=== PATIENT | female | born 1995 | race Caucasian/White ===

== ENCOUNTER → 2017-07-23 | Outpatient (CLI) | payer BC ==
[~2017-07-23] MED LIST: CEPH500T PO
--- NOTE | 2017-07-23 18:04 | Diagnostic Imaging Report ---
INDICATION: Size and dates. Anatomy. TECHNIQUE: Multiple real-time grayscale images were obtained over the gravid uterus. COMPARISON: None. FINDINGS: There is a single live intrauterine of 20 weeks 3 days +/- 2 weeks. Cardiac activity and motion are seen at real-time. No abnormality is seen. The placenta is posterior with no previa. There is a normal amount of amniotic fluid. Cervical length is 5.5 cm. No abnormality of the maternal ovaries is demonstrated. Biometrical measurements are as follows: Biparietal 4.8 cm, age 20 weeks 4 days. Head circumference 17.86 cm, age 20 weeks 3 days. Abdominal circumference 15.16 cm, age 20 weeks 3 days. Femur length 3.23 cm, age 20 weeks 1 days. Sonographic estimate age: 20 weeks 3 days. Sonographic estimated date of delivery: 12/07/2017. Estimated Weight: 342 gm (+/- 50 gm). LMP percentile: 60%. heart rate: 133 beats per minute. number: 1 of 1. IMPRESSION: There is a single live intrauterine of 20 weeks 3 days +/- 2 weeks. No abnormality is seen. Dictated by: Dictated on workstation # [id number]
== END ==
LOC: RAD 09:55
PROVIDERS: ATTEND Obstetrics & Gynecology
DX: Z34.92 Encounter for supervision of normal pregnancy, unspecified, second trimester (principal); Z3A.20 20 weeks gestation of pregnancy
CPT/HCPCS: 76805

== ENCOUNTER 2017-12-08 18:50 | Inpatient (IN) | payer BC ==
[~2017-12-08] VITALS: Ht 170.2 cm; Wt 96.2 kg
[2017-12-08 19:12] VITALS: BP 127/83
[2017-12-08] MEDS ORDERED: D5 LR IV SOLUTION 1,000 ML IV ONE (19:20)
[2017-12-08] MEDS ORDERED: PREN1TAB86 PO (19:25)
[2017-12-08] MEDS ORDERED: NS IV 500 ML 500 ML ONE (19:46)
[2017-12-08] MEDS ORDERED: MINERAL OIL CONCENTRATE 99.9% 15 ML UDC TOP PRN (20:00)
[2017-12-08] MEDS ORDERED: NS IV 1000 ML 500 ML IV ONE (20:00)
[2017-12-08] MEDS ORDERED: MISOPROSTOL 100 MCG (CYTOTEC) TAB PO ONE (20:00)
[2017-12-08 20:02] LABS: BASOPHILS % (AUTO) 0 % (0-10); BILIRUBIN,URINE NEGATIVE (NEGATIVE); CLARITY,URINE CLEAR; COLOR,URINE YELLOW; EOSINOPHILS # (AUTO) 0.1 10^3/uL (0.0-0.3); EOSINOPHILS % (AUTO) 0 % (0-10); GLUCOSE, URINE (UA) NEGATIVE (NEGATIVE); HEMATOCRIT 32 % (35-52); HEMOGLOBIN 11.1 G/DL (11.5-16.0); KETONES,URINE NEGATIVE (NEGATIVE); LEUKOCYTE ESTERASE ,URINE NEGATIVE (NEGATIVE); LYMPHOCYTES # (AUTO) 1.8 X 10^3 (1.0-4.0); LYMPHOCYTES % (AUTO) 15 % (12-44); MEAN CORPUSCULAR HEMOGLOBIN 32 PG (25-34); MEAN CORPUSCULAR HGB CONC 35 G/DL (32-36); MEAN CORPUSCULAR VOLUME 92 FL (80-99); MEAN PLATELET VOLUME 11.8 FL (7.4-10.4); MONOCYTES # (AUTO) 1.1 X 10^3 (0.0-1.0); MONOCYTES % (AUTO) 9 % (0-12); NEUTROPHILS # (AUTO) 9.5 X 10^3 (1.8-7.8); NEUTROPHILS % (AUTO) 76 % (42-75); NITRITE,URINE NEGATIVE (NEGATIVE); PH,URINE 6.5 (5-9); PLATELET COUNT 165 10^3/uL (130-400); PROTEIN,URINE NEGATIVE (NEGATIVE); RED BLOOD COUNT 3.48 10^6/uL (4.35-5.85); RED CELL DISTRIBUTION WIDTH 12.8 % (10.0-14.5); UROBILINOGEN,URINE NORMAL (NORMAL); WHITE BLOOD COUNT 12.5 10^3/uL (4.3-11.0)
[2017-12-08 20:15] LABS: BACTERIA,URINE FEW /HPF; WBC,URINE RARE /HPF
[2017-12-08] MEDS: D5 LR IV SOLUTION 1,000 ML IV SCH ×2 (20:20→23:25)
[2017-12-08 20:25] VITALS: BP 118/71
[2017-12-08 23:10] VITALS: BP 118/72
[2017-12-09] VITALS (23 sets, daily range): BP systolic 104–152; BP diastolic 50–88
[2017-12-09] MEDS ORDERED: SUFENTA 0.6MCG/ML BUPIVA 0.125 100 ML ONE (00:42)
[2017-12-09] MEDS ORDERED: LACTATED RINGERS 1,000 ML IV ONE ×3 (00:42→02:13)
[2017-12-09] MEDS: MISOPROSTOL 100 MCG (CYTOTEC) TAB PO SCH ×2 (01:08→04:00)
[2017-12-09] MEDS ORDERED: BUPIVACAINE 0.25% 30 ML (SENSORCAINE) VIAL ONE ×2 (01:14→04:06)
[2017-12-09] MEDS ORDERED: fentaNYL INJECTION 100 MCG/2 ML AMP ONE (01:14)
[2017-12-09] MEDS ORDERED: ONDANSETRON 4 MG/2 ML (SDV) Z0FRAN IV PRN (02:15)
[2017-12-09] MEDS ORDERED: NALOXONE 0.4 MG/ML 1 ML (NARCAN) VIAL IV PRN (02:15)
[2017-12-09] MEDS ORDERED: EPIDURAL (SUFENTA 0.6MCG/ML BUPIVA 0.125%) 100 ML BAG EPI PRN (02:15)
[2017-12-09] MEDS ORDERED: TERBUTALINE INJ 1 MG/ML (BRETHINE) AMP ONE (02:38)
[2017-12-09] MEDS ORDERED: ceFAZolin 2 GM IV Premixed 50 ML ONE (02:58)
[2017-12-09] MEDS ORDERED: raNItidine 50 MG/2 ML INJ (ZANTAC) ONE (02:58)
[2017-12-09] MEDS ORDERED: raNItidine INJECTION 50 MG in NS (IVPB) 50 ML IV ONE (03:00)
[2017-12-09] MEDS ORDERED: METOCLOPRAMIDE INJ 10 MG/2 ML (REGLAN) IV ONE (03:00)
[2017-12-09] MEDS ORDERED: CATHETER FLUSH 10 ML SYR IV PRN (03:00)
[2017-12-09] MEDS ORDERED: CITRIC ACID/SOB CIT (BICITRA) 30 ML UDC PO ONE (03:00)
[2017-12-09] MEDS ORDERED: LIDOCAINE PF 2% 5 ML (XYLOCAINE) VIAL ONE ×2 (03:12→04:11)
[2017-12-09] MEDS ORDERED: TERBUTALINE INJ 1 MG/ML (BRETHINE) AMP SC ONE (03:15)
--- NOTE | 2017-12-09 03:21 | History & Physical-OB ---
OB - Chief Complaint & HPI Date/Time Date of Admission: Date of Admission: Dec 08, 2017 at 6:50 pm Time Seen by Provider: 20:00 Chief Complaint/History OB-Reason for Admission/Chief: Induction of Labor Hx : 1 Hx Para: 0 Expected Date of Delivery: Dec 10, 2017 Gestational Age in Weeks: 39 Gestational Age in Days: 6 Admission Nurse Assessment Rev: Yes History of Labs O pos Antibody neg RI RPR NR HBsAg NR HIV NR GC neg GBS neg Allergies and Home Medications Allergies Coded Allergies: No Known Drug Allergies (Unverified , 12/08/17) Home Medications Vit W-Ca,Fe,FA(<1 mg) 1 Each Tablet, 1 EACH PO DAILY, (Reported) Patient Home Medication List Home Medication List Reviewed: Yes OB - History Hx of Present Care: Yes Ultrasounds: Normal mid trimester US Obstetrical Complications: None Medical Complications: None Patient Past Medical History n/a Social History/Family History Recent Infectious Disease Expo: No Alcohol Use: Denies Use Recreational Drug Use: No Immunizations Tetanus Booster (TDap): Less than 5yrs OB - Admission Exam Physical Exam HEENT: NCAT Heart: Rhythm Normal Lungs: Clear Abdomen: Gravid Extremities: Normal Reflexes: Normal Cervical Dilatation: 2cm Effacement: 75% Station: -2 Membranes: Intact Amniotic Fluid: Clear Heart Rate: 130's Accelerations: Accelerations Present Decelerations: No Decelerations Short Term Variability: Present Shelter Variability: Average (6-25) Contractions on Admission: >10 Minutes Apart Intensity: Mild Steele Scoring Tool (Modified) Dilation (cm): 1-2cm (1) Effacement (%): 51-79% (2) Descent/Station: -2 (1) Cervix Consistency: Soft (2) Cervix Position: Anterior (2) Steele Score: 8 Labs Laboratory Tests Test 12/08/17 19:10 Range/Units White Blood Count 12.5 H 4.3-11.0 10^3/uL Red Blood Count 3.48 L 4.35-5.85 10^6/uL Hemoglobin 11.1 L 11.5-16.0 G/DL Hematocrit 32 L 35-52 % Mean Corpuscular Volume 92 80-99 FL Mean Corpuscular Hemoglobin 32 25-34 PG Mean Corpuscular Hemoglobin Concent 35 32-36 G/DL Red Cell Distribution Width 12.8 10.0-14.5 % Platelet Count 165 130-400 10^3/uL Mean Platelet Volume 11.8 H 7.4-10.4 FL Neutrophils (%) (Auto) 76 H 42-75 % Lymphocytes (%) (Auto) 15 12-44 % Monocytes (%) (Auto) 9 0-12 % Eosinophils (%) (Auto) 0 0-10 % Basophils (%) (Auto) 0 0-10 % Neutrophils # (Auto) 9.5 H 1.8-7.8 X 10^3 Lymphocytes # (Auto) 1.8 1.0-4.0 X 10^3 Monocytes # (Auto) 1.1 H 0.0-1.0 X 10^3 Eosinophils # (Auto) 0.1 0.0-0.3 10^3/uL Basophils # (Auto) 0.0 0.0-0.1 10^3/uL Urine Color YELLOW Urine Clarity CLEAR Urine pH 6.5 5-9 Urine Specific [place] 1.005 L 1.016-1.022 Urine Protein NEGATIVE NEGATIVE Urine Glucose (UA) NEGATIVE NEGATIVE Urine Ketones NEGATIVE NEGATIVE Urine Nitrite NEGATIVE NEGATIVE Urine Bilirubin NEGATIVE NEGATIVE Urine Urobilinogen NORMAL NORMAL MG/DL Urine Leukocyte Esterase NEGATIVE NEGATIVE Urine RBC (Auto) NEGATIVE NEGATIVE Urine RBC NONE /HPF Urine WBC RARE /HPF Urine Squamous Epithelial Cells 2-5 /HPF Urine Crystals NONE /LPF Urine Bacteria FEW H /HPF Urine Casts NONE /LPF Urine Mucus NEGATIVE /LPF Urine Culture Indicated NO OB - Assessment/Plan/Diagnosis Assessment Assessment: induction of labor Admission Dx 22 yo @ 39.5 days gestation Elective induction of labor GBS neg Admission Status: Inpatient Order (span 2 midnights) Reason for Inpatient Admission: Induction of labor Plan Plan: Induction Induction Method: per Misoprostol Protocol EULALIA ALVARADO DO Dec 09, 2017 3:20 am
[2017-12-09] MEDS ORDERED: OXYTOCIN/NORMAL SALINE 500 ML IV SCH (03:24)
--- NOTE | 2017-12-09 03:24 | Progress Note-Standard ---
Standard Progress Note Progress Notes/Assess & Plan Date Seen by Provider: Dec 09, 2017 Time Seen by Provider: 03:00 Progress/Assessment & Plan This 22-year-old female was admitted last night for induction of labor. Misoprostol 100 g was given as induction agent after an IV fluid bolus was given, which resulted in the patient developing a regular contraction pattern. There was an episode of prolonged bradycardia which resolved spontaneously on its own with repositioning and oxygen supplementation. A single dose was given due to this, however, spontaneous rupture membranes occurred on its own which facilitated a more regular contraction pattern. The patient became acutely more uncomfortable and received an epidural. There were recurrent friable decelerations followed by a prolonged deceleration down into the 70s lasting approximately 7 minutes with slow return to baseline after repositioning and oxygen. Patient's cervix was of reevaluated at that point and found to be 6-7 cm dilated 70 percent effaced, the station had not progressed she is still approximately -2 to -1 station. Due to intolerance of labor I discussed the patient proceeding with , during this discussion another heart rate deceleration occurred which point I recommended proceeding. Risk of the procedure was reviewed with the patient in detail, all of her questions are answered with her significant other present. OR crew was notified and we will proceed with delivery as soon as they are available EULALIA ALVARADO DO Dec 09, 2017 3:24 am
--- NOTE | 2017-12-09 03:28 | Discharge Inst-Women's Service ---
Discharge Inst-Women's Serv Depart Medication/Instructions New, Converted or Re-Newed RX: RX on Chart Final Diagnosis POD 2 PLTCS for intolerance of labor Acute blood loss anemia Consults/Follow Up Additional Follow Up: Yes Orders/Referrals Dr. Hughes in 7-10 days and in 6 weeks Activity Activity: Activity as Tolerated Driving Instructions: No Driving for 1 Week NO SMOKING: NO SMOKING Nothing Inside Vagina: No Douching, No [place], No Tampons Diet Discharge Diet: No Restrictions Symptoms to Report to : Bleeding Excessive, Pain Increased, Fever Over 101 Degrees F, Vaginal Bleeding Increase, Questions/Concerns For Any Problems or Questions: Contact Your Physician Skin/Wound Care Infection Signs and Symptoms: Increased Redness, Foul Odor of Wound, Increased Drainage, Skin Itchy or Has a Rash, Increased Swelling, Temperature Above 101 F Operative Area Clean and Dry: Keep Incision Clean/Dry Stitches/Eugenio/Dermabond: Dermabond, Care of Stitches Bathing Instructions: EULALIA Townsend DO Dec 09, 2017 3:28 am
[2017-12-09] MEDS ORDERED: DOCU100C37 PO (03:29)
[2017-12-09] MEDS ORDERED: ACHD5005 PO (03:29)
[2017-12-09] MEDS ORDERED: IBUP-844 PO (03:29)
[2017-12-09] MEDS ORDERED: MEASLES,MUMPS,RUBELLA 1 EA INJ SC SCH (03:30)
[2017-12-09] MEDS ORDERED: TETANUS,DIPTH,PERTUSS P/F (BOOSTRIX) 0.5 ML VIAL IM SCH (03:30)
[2017-12-09] MEDS ORDERED: HYDROmorphone 1 MG/ML (DILAUDID) 1 ML SYRINGE IV PRN (03:30)
[2017-12-09] MEDS ORDERED: ONDANSETRON 4 MG/2 ML (SDV) Z0FRAN IVP PRN (03:30)
[2017-12-09] MEDS ORDERED: ceFAZolin 2 GM IV Premixed 50 ML IV ONE (04:00)
[2017-12-09] MEDS ORDERED: METHYLERGONOVINE 0.2 MG/ML (METHERGINE) AMP ONE (04:00)
[2017-12-09] MEDS: KETOROLAC 30 MG/ML VIAL IVP SCH ×4 (04:15→21:59)
--- NOTE | 2017-12-09 05:19 | OPERATIVE REPORT ---
DATE OF SERVICE: PREOPERATIVE DIAGNOSES: 1. A 22-year-old G1, P0 at 39 weeks and 6 days gestation. 2. intolerance of labor. 3. Remote from delivery. POSTOPERATIVE DIAGNOSES: 1. A 22-year-old G1, P0 at 39 weeks and 6 days gestation. 2. intolerance of labor. 3. Remote from delivery. 4. Nuchal cord x1. PROCEDURE PERFORMED: Primary low transverse section. SURGEON: Norberto Alvarado DO. ANESTHESIA: Epidural, which was bolused. ESTIMATED BLOOD LOSS: 500 mL. URINE OUTPUT: 200 mL clear drained at the end of the procedure. FLUIDS: 1100 mL of lactated Ringer solution. FINDINGS: This is a live male infant weighing 7 pounds 6 ounces, Apgars of 8 and 9. Grossly normal appearing uterus, bilateral fallopian tubes and ovaries. SPECIMEN SENT: Placenta. INDICATIONS FOR PROCEDURE: This is a 22-year-old female who was brought in last evening for induction using misoprostol. She received one dose of 100 mcg p.o. followed by a regular contraction pattern and spontaneous rupture of membrane. However, there was evidence of intolerance of labor with multiple variable heart rate decelerations as well as a prolonged deceleration lasting approximately 6 minutes down into the 70s, at which point I presented to the hospital to evaluate the patient. She was found to be remote from delivery, 6 to 7 cm dilated; however, station was still -1 to -2 and there was a large caput noted. Due to remoteness from delivery and recurrent episodes of intolerance of labor, I discussed with the patient to proceed with . Consent was obtained. The patient was taken to the operating room. OPERATIVE REPORT IN DETAIL: Once in the operating room, epidural anesthesia was bolused and found to be adequate. She was placed in the supine position with leftward tilt, prepped and draped in normal sterile fashion. A Pfannenstiel skin incision made with a knife and carried down to the underlying fascia using Bovie cautery. Fascial incision extended laterally using Bovie cautery. Superior aspect of the fascial incision was then grasped with Deysi clamps, tented up and dissected off the underlying rectus muscles. The inferior aspect of the fascial incision was then grasped with Deysi clamps, tented upward and dissected off the underlying rectus muscles. The rectus muscle was then dissected down the midline using Mack scissors, which exposed the peritoneum, which entered bluntly and extended using blunt traction. An Giovany ring retractor was placed in the peritoneal incision, which offered excellent lateral sidewall retraction. I then make a low transverse incision into the vesicouterine peritoneum and bluntly dissected off the lower uterine segment. I proceeded with myotomy until membranes were visualized and iatrogenic rupture of membranes was performed through the incision. I then extended the uterine incision laterally and superiorly using bandage scissors. was found in the occiput posterior presentation. The vertex of the 's head was then elevated up to the incision with gentle fundal pressure. The 's head was delivered to the incision where the nares and oropharynx were bulb suctioned. A nuchal cord was reduced x1. Anterior and posterior shoulders were delivered. The was then brought into the operative field. The cord was duly clamped and cut and was handed off to Dr. Medrano who was present for delivery. Cord blood was collected, 3-vessel cord with intact placenta delivered spontaneously thereafter. IV Pitocin was initiated to facilitate uterine contraction. Uterine fundus became firmer with bimanual massage. The uterus was exteriorized and cleared of all endometrial clots and debris. I then proceeded with closing the uterine incision using 0 Vicryl suture in running locked fashion. A second layer of imbricating 0 Monocryl was placed. Excellent hemostasis was noted after doing so. There was some mild uterine atony and 0.2 mg of Methergine was given IM with good response in uterine tone. I then placed the uterus back from the pelvis and copiously irrigated the pelvis using normal saline. Once again, there was no active bleeding noted from any of my dissection planes. I then proceeded with placing Interceed antiadhesive over my low transverse incision and then closed the peritoneum using 3-0 Vicryl suture in running fashion. The rectus muscle was reapproximated using 3-0 Vicryl suture in interrupted fashion. The fascia was reapproximated using 0 Vicryl suture in running fashion. Subcutaneous tissue was reapproximated using 3-0 plain in an interrupted subcutaneous stitch. The skin was reapproximated using 4-0 Monocryl in subcuticular. Dermabond was applied to incision. Sterile dressing with adhesive white tape. The patient tolerated the procedure well and sent to recovery area in stable condition. Lap and sponge count correct at the end of the procedure. Instrument count was correct as well. Two grams of Ancef given preoperatively for infection prophylaxis. Job ID: [id number] DocumentID: [id number] Dictated Date: 12/09/2017 04:21:47 Oliver Filter Operator Date: 12/09/2017 05:18:36 Dictated By: NORBERTO ALVARADO DO
[2017-12-09] MEDS: IBUPROFEN 600 MG (MOTRIN) TAB PO SCH ×3 (05:32→15:36)
[2017-12-09] MEDS: CATHETER FLUSH 10 ML SYR IV SCH ×2 (06:00→10:02)
[2017-12-09] MEDS: HYDROcodone/APAP 5 MG/325 MG (LORTAB) TAB PO PRN ×3 (06:53→19:03)
[2017-12-09 07:54] LABS: BASOPHILS % (AUTO) 0 % (0-10); EOSINOPHILS % (AUTO) 0 % (0-10); HEMATOCRIT 32 % (35-52); HEMOGLOBIN 10.7 G/DL (11.5-16.0); LYMPHOCYTES # (AUTO) 1.8 X 10^3 (1.0-4.0); LYMPHOCYTES % (AUTO) 9 % (12-44); MEAN CORPUSCULAR HEMOGLOBIN 31 PG (25-34); MEAN CORPUSCULAR HGB CONC 34 G/DL (32-36); MEAN CORPUSCULAR VOLUME 93 FL (80-99); MEAN PLATELET VOLUME 11.9 FL (7.4-10.4); MONOCYTES # (AUTO) 1.2 X 10^3 (0.0-1.0); MONOCYTES % (AUTO) 6 % (0-12); NEUTROPHILS # (AUTO) 16.4 X 10^3 (1.8-7.8); NEUTROPHILS % (AUTO) 85 % (42-75); PLATELET COUNT 147 10^3/uL (130-400); RED BLOOD COUNT 3.41 10^6/uL (4.35-5.85); RED CELL DISTRIBUTION WIDTH 13.2 % (10.0-14.5); WHITE BLOOD COUNT 19.4 10^3/uL (4.3-11.0)
[2017-12-09] MEDS: DOCUSATE SODIUM 100 MG (COLACE) CAP PO SCH ×2 (08:13→21:59)
[2017-12-10] MEDS: HYDROcodone/APAP 5 MG/325 MG (LORTAB) TAB PO PRN ×4 (03:12→22:28)
[2017-12-10 03:15] VITALS: BP 115/72
[2017-12-10] MEDS: IBUPROFEN 600 MG (MOTRIN) TAB PO SCH ×4 (04:11→22:28)
--- NOTE | 2017-12-10 07:56 | Anesthesia-Regional Post-Op ---
Regional Patient Condition Mental Status: Alert, Oriented x3 Circulation: Same as Pre-Op Headache: Absent Sensation: Full Recovery Motor Block: Absent Post Op Complications Complications None Follow Up Care/Instructions Patient Instructions None needed. Anesthesia/Patient Condition Patient is doing well, no complaints, stable vital signs, no apparent adverse anesthesia problems. No complications reported per nursing. JOSLYN LADD CRNA Dec 10, 2017 07:56
[2017-12-10 08:30] VITALS: BP 106/60
--- NOTE | 2017-12-10 09:00 | Postpartum Progress Note ---
Note Note Day # 1 Subjective: Patient is without complaints. Ambulating, voiding. Tolerating a regular diet without nausea or vomiting. Normal lochia. Pain is well controlled with oral pain medications. Objective: Vital Sign - Last 24 Hours 12/09/17 12/09/17 12/09/17 12/10/17 11:27 16:23 22:00 03:15 Temp 97.7 98.8 97.9 98.2 Pulse 88 88 81 84 Resp 16 16 18 18 B/P (MAP) 104/60 (75) 115/75 (88) 131/75 (93) 115/72 (86) Pulse Ox 97 99 99 99 O2 Delivery Room Air Room Air Intake and Output 12/09/17 12/09/17 12/10/17 15:00 23:00 07:00 Intake Total 602 ml 1720 ml 1200 ml Output Total 3200 ml 1000 ml Balance 602 ml -1480 ml 200 ml Physical Exam: General - Alert and oriented, no apparent distress Abdomen - Soft, appropriately tender to palpation, non-distended, fundus firm at umbilicus Extremities - no edema, negative Ophelia's bilaterally Incision- c/d/i Assessment: POD 1 PLTCS Acute blood loss anemia Plan: Routine care. Encourage breast feeding. Encourage ambulation. Ferrous sulfate supplementation. Plan for discharge tomorrow Vitals - Labs Vital Signs - I&O Vital Signs Date Time Temp Pulse Resp B/P (MAP) Pulse Ox O2 Delivery O2 Flow Rate FiO2 12/10/17 03:15 98.2 84 18 115/72 (86) 99 12/09/17 22:00 97.9 81 18 131/75 (93) 99 12/09/17 16:23 98.8 88 16 115/75 (88) 99 Room Air 12/09/17 11:27 97.7 88 16 104/60 (75) 97 Room Air I & O 12/10/17 07:00 Intake Total 3522 ml Output Total 4200 ml Balance -678 ml EULALIA ALVARADO DO Dec 10, 2017 9:00 am
[2017-12-10] MEDS: DOCUSATE SODIUM 100 MG (COLACE) CAP PO SCH ×2 (09:17→22:27)
[2017-12-10 12:30] VITALS: BP 107/64
[2017-12-10 17:00] VITALS: BP 117/76
[2017-12-10 22:30] VITALS: BP 107/68
[2017-12-11] MEDS ORDERED: CALCIUM CARBONATE 500 MG (TUMS) TAB.CHEW PO PRN (04:00)
[2017-12-11] MEDS: IBUPROFEN 600 MG (MOTRIN) TAB PO SCH ×2 (04:19→09:43)
[2017-12-11] MEDS: HYDROcodone/APAP 5 MG/325 MG (LORTAB) TAB PO PRN ×2 (04:19→09:45)
[2017-12-11 04:20] VITALS: BP 100/59
--- NOTE | 2017-12-11 07:28 | Postpartum Progress Note ---
Note Note Day #2 Subjective: Patient is without complaints. Ambulating, voiding. Tolerating a regular diet without nausea or vomiting. Normal lochia. Pain is well controlled with oral pain medications. . Objective: Vital Sign - Last 24 Hours 12/10/17 12/10/17 12/10/17 12/10/17 08:30 12:30 17:00 22:30 Temp 98.0 97.9 98.0 97.6 Pulse 80 76 88 82 Resp 18 18 18 16 B/P (MAP) 106/60 (75) 107/64 (78) 117/76 (90) 107/68 (81) Pulse Ox 97 97 98 99 O2 Delivery Room Air Room Air Room Air Room Air 12/11/17 04:20 Temp 97.6 Pulse 83 Resp 16 B/P (MAP) 100/59 (73) Pulse Ox 97 O2 Delivery Room Air Intake and Output 12/10/17 12/10/17 12/11/17 15:00 23:00 07:00 Intake Total 1860 ml 1300 ml Output Total 2600 ml 1700 ml Balance -740 ml -400 ml Physical Exam: General - Alert and oriented, no apparent distress Abdomen - Soft, appropriately tender to palpation, non-distended, fundus firm at umbilicus Extremities - no edema, negative Ophelia's bilaterally Incision- c/d/i Final Diagnosis: POD 2 PLTCS Acute blood loss anemia Plan: Routine care. Encourage breast feeding. Encourage ambulation. Ferrous sulfate supplementation. Plan for discharge [] Vitals - Labs Vital Signs - I&O Vital Signs Date Time Temp Pulse Resp B/P (MAP) Pulse Ox O2 Delivery O2 Flow Rate FiO2 12/11/17 04:20 97.6 83 16 100/59 (73) 97 Room Air 12/10/17 22:30 97.6 82 16 107/68 (81) 99 Room Air 12/10/17 17:00 98.0 88 18 117/76 (90) 98 Room Air 12/10/17 12:30 97.9 76 18 107/64 (78) 97 Room Air 12/10/17 08:30 98.0 80 18 106/60 (75) 97 Room Air I & O 12/11/17 07:00 Intake Total 3160 ml Output Total 4300 ml Balance -1140 ml EULALIA ALVARADO DO Dec 11, 2017 7:28 am
[2017-12-11 08:00] VITALS: BP 109/64
[2017-12-11] MEDS: DOCUSATE SODIUM 100 MG (COLACE) CAP PO SCH (09:42)
[2017-12-11 11:30] VITALS: BP 109/64
== END 2017-12-11 11:30 | disposition home or self-care (01) | DRG 765 ==
LOC: LDRP 18:50
PROVIDERS: ADMIT Obstetrics & Gynecology; ATTEND Obstetrics & Gynecology
PROC: 3E0DXGC Introduction of Other Therapeutic Substance into Mouth and Pharynx, External Approach (ICD-10-PCS; 2017-12-08)
PROC: 10D00Z1 Extraction of Products of Conception, Low, Open Approach (ICD-10-PCS; principal; 2017-12-09 03:40)
DX: O76 Abnormality in fetal heart rate and rhythm complicating labor and delivery (principal); O90.81 Anemia of the puerperium; D62 Acute posthemorrhagic anemia; O69.81X0 Labor and delivery complicated by cord around neck, without compression, not applicable or unspecified; O75.89 Other specified complications of labor and delivery; Z37.0 Single live birth; Z3A.39 39 weeks gestation of pregnancy
CPT/HCPCS: 36415; 81000; 85025; 86850; 86900; 86901; 94664

== ENCOUNTER 2019-08-10 18:13 | Emergency (ER) | payer BC, MEDICAID ==
[~2019-08-10] VITALS: Ht 170.2 cm; Wt 81.2 kg
[~2019-08-10 18:13] MED LIST changes: +ACHD5005 PO; +DOCU100C37 PO; +IBUP-844 PO; +PREN1TAB86 PO
[2019-08-10] MEDS ORDERED: LIDOCAINE 1% INJ 20 ML 20 ML VIAL INJ ONE (18:45)
--- NOTE | 2019-08-10 19:00 | NUR ---
ASSUMED PRIMARY NURSE ROLE.
--- NOTE | 2019-08-10 19:17 | Diagnostic Imaging Report ---
INDICATION: Injury to the right 5th finger. TIME OF EXAM: 7:08 PM 3 views of the right hand were obtained. There is an acute fracture of the distal phalanx of the 5th finger. No significant displacement or angulation is seen. The proximal and middle phalanges of the 5th finger are intact. Metacarpals are intact. IMPRESSION: Nondisplaced distal phalangeal fracture of the 5th finger. Dictated by: Dictated on workstation # [id number]
[2019-08-10] MEDS ORDERED: HYDR-4226 PO (20:22)
[2019-08-10] MEDS ORDERED: SULF1TAB35 PO (20:22)
--- NOTE | 2019-08-10 20:22 | ED Upper Extremity ---
General Chief Complaint: Upper Extremity Stated Complaint: R PINKY INJ Nursing Triage Note: pt amb to triage with complaint of right pinky injury. states smashed pinky in car door. Nursing Sepsis Screen: No Definite Risk History of Present Illness Date Seen by Provider: Aug 10, 2019 Time Seen by Provider: 18:35 Allergies and Home Medications Allergies Coded Allergies: No Known Drug Allergies (Unverified , 12/08/17) Home Medications Docusate Sodium 100 Mg Capsule, 100 MG PO BID PRN for CONSTIPATION-1ST LINE Prescribed by: EULALIA ALVARADO on 12/09/17 032 Hydrocodone Bit/Acetaminophen 1 Tab Tab, 1-2 TAB PO Q4H PRN for PAIN-MODERATE Prescribed by: EULALIA ALVARADO on 12/09/17328 Ibuprofen 600 Mg Tablet, 600 MG PO Q6H Prescribed by: EULALIA ALVARADO on 12/09/17328 Vit W-Ca,Fe,FA(<1 mg) 1 Each Tablet, 1 EACH PO DAILY, (Reported) Past Jrqnuoa-Txwsgf-Rybdyl Hx Patient Social History Alcohol Use: Rarely Uses Recreational Drug Use: No Smoking Status: Never a Smoker Recent Foreign Travel: No Contact w/Someone Who Travel: No Recent Infectious Disease Expo: No Recent Hopitalizations: No Immunizations Up To Date Tetanus Booster (TDap): Less than 5yrs PED Vaccines UTD: Yes Seasonal Allergies Seasonal Allergies: Yes Past Medical History Surgeries: Yes (wisdom teeth 2013) Section Respiratory: No Cardiac: No Neurological: No Genitourinary: No Gastrointestinal: No Musculoskeletal: No Endocrine: No HEENT: No Cancer: No Psychosocial: No Integumentary: No Blood Disorders: No Family Medical History Patient reports no known family medical history. Physical Exam Vital Signs Vital Signs - First Documented 08/10/19 18:20 Temp 36.5 Pulse 95 Resp 20 B/P (MAP) 142/88 (106) Pulse Ox 99 O2 Delivery Room Air Capillary Refill : Less Than 3 Seconds Height, Weight, BMI Height: 5'7.00" Weight: 212lbs. 0.0oz. 96.331849xp; 28.00 BMI Method:Stated Procedures/Interventions Suture Size: 4-0 Progress/Results/Core Measures Results/Orders My Orders Orders - JIMY KWOK Lidocaine 1% Inj 20 Ml (Xylocaine 1% Inj (08/10/19 18:45) Finger(S) (08/10/19 18:33) Medications Given in ED Current Medications Medications Dose Ordered Sig/Nayeli Route Start Time Stop Time Status Last Admin Dose Admin Lidocaine HCl 20 ml ONCE ONCE INJ 08/10/19 18:45 08/10/19 18:46 DC 08/10/19 18:39 20 ML Vital Signs/I&O 08/10/19 18:20 Temp 36.5 Pulse 95 Resp 20 B/P (MAP) 142/88 (106) Pulse Ox 99 O2 Delivery Room Air Blood Pressure Mean: 106 Departure Impression Primary Impression: Finger fracture, right Qualified Codes: S62.666B - Nondisplaced fracture of distal phalanx of right little finger, initial encounter for open fracture Additional Impression: Nail avulsion, finger Disposition: HOME, SELF-CARE Condition: Stable/Unchanged Departure-Patient Inst. Decision time for Depature: 20:18 Referrals: ADAM RECINOS MD (PCP/Family) Primary Care Physician MERLINE BAÑUELOS DO Patient Instructions: Common Finger Injuries (DC), Nail Avulsion Add. Discharge Instructions: Leave the splint in place. Call first thing tomorrow morning to schedule an appointment for close follow-up with Dr. Thurman. Take antibiotics as directed. Tylenol and ibuprofen as needed for pain. For pain unrelieved by ibuprofen and Tylenol you may use hydrocodone. Return back to the emergency room for worsening symptoms or concerns as needed. All discharge instructions reviewed with patient and/or family. Voiced understanding. Scripts Sulfamethoxazole/Trimethoprim (Bactrim Ds Tablet) 1 Each Tablet 1 EACH PO BID for 7 Days, #14 TAB Prov: JIMY KOWK 08/10/19 Hydrocodone/Acetaminophen (Hydrocodone/Acetaminophen 5 MG/325 MG TAB) 1 Each Tablet 1 TAB PO Q4-6HR for Pain MDD 10 TABS for 7 Days, #20 TAB Prov: JIMY KWOK 08/10/19 JIMY KWOK Aug 10, 2019 20:22
[2019-08-10] MEDS ORDERED: TRIM/SULFAMETH 160/800 (SEPTRA DS) TAB PO ONE (20:30)
[2019-08-10] MEDS ORDERED: RX-HYDROCODONE/APAP 5/325 MG #4 TAB PK PO PRN (20:30)
[2019-08-10 20:42] VITALS: BP 117/84
== END 2019-08-10 20:44 | disposition home or self-care (01) ==
LOC: EDUNIT# 18:13 → ER 18:14
DX: S62.666B Nondisplaced fracture of distal phalanx of right little finger, initial encounter for open fracture (principal); W26.8XXA Contact with other sharp object(s), not elsewhere classified, initial encounter
CPT/HCPCS: 12041; 29130; 73140

== ENCOUNTER → 2019-12-20 | Outpatient (CLI) | payer BC, MEDICAID ==
[~2019-12-20] MED LIST changes: +HYDR-4226 PO; +SULF1TAB35 PO
== END ==
LOC: LABNPT 08:55
PROVIDERS: ATTEND Family Medicine
DX: R52 Pain, unspecified (principal); Z20.828 Contact with and (suspected) exposure to other viral communicable diseases
CPT/HCPCS: 87635

== ENCOUNTER → 2022-01-14 | Outpatient (CLI) | payer BC, MEDICAID ==
[~2022-01-14] MED LIST changes: -SULF1TAB35 PO; +SULF1TAB38 PO
--- NOTE | 2022-01-14 18:03 | Diagnostic Imaging Report ---
INDICATION: Anatomy survey. Supervision of normal . TECHNIQUE: Multiple real-time grayscale images were obtained over the gravid uterus. COMPARISON: None FINDINGS: A single live intrauterine gestation is visualized in cephalic presentation. heart tones measure 140 BPM. The placenta is posterior and not low lying. The cervix measures 5.9 cm in length without evidence of funneling. The JESSIE visually is normal, although no dedicated measurements were performed. The kidneys, bladder, stomach, brain, three-vessel cord, spine, and cord insertion are visualized and have a normal appearance. The four-chamber heart is suboptimally visualized. Views of the adnexa are unremarkable. No free fluid is seen in the pelvis. Biometrical measurements are as follows: Biparietal 4.56 cm, age 19 weeks 6 days. Head circumference 18.3 cm, age 20 weeks 5 days. Abdominal circumference 15.47 cm, age 20 weeks 5 days. Femur length 3.24 cm, age 20 weeks 1 days. Sonographic estimate age: 20 weeks 3 days. Sonographic estimated date of delivery: 05/31/2022. Estimated Weight: 352 gm (+/- 52 gm). LMP percentile: 61%. heart rate: 140 beats per minute. number: 1 of 1. IMPRESSION: 1. Single live intrauterine station measuring 20 weeks 3 days and an estimated due date of 05/31/2022. These are within range of the clinical dates. Recommend continued follow-up as indicated. 2. Suboptimal evaluation of the four-chamber heart. Otherwise, the anatomy is visualized and is unremarkable. Recommend attention on follow-up. Dictated by: Dictated on workstation # [id number]
== END ==
LOC: RAD 10:10
PROVIDERS: ATTEND Obstetrics & Gynecology
DX: Z34.02 Encounter for supervision of normal first pregnancy, second trimester (principal); Z3A.20 20 weeks gestation of pregnancy
CPT/HCPCS: 76805

== ENCOUNTER 2022-05-16 05:52 | Outpatient (CLI) | payer BC, MEDICAID ==
[~2022-05-16] VITALS: Ht 170.2 cm; Wt 94.5 kg
[2022-05-23] MEDS ORDERED: DOCU100C37 PO (07:22)
[2022-05-23] MEDS ORDERED: IBUP-844 PO (07:22)
[2022-05-23] MEDS ORDERED: ACHD5005 PO (07:22)
== END 2022-05-21 17:31 | disposition home or self-care (01) ==
LOC: PREOP 05:52
PROVIDERS: ATTEND Obstetrics & Gynecology
DX: Z01.818 Encounter for other preprocedural examination (principal)

== ENCOUNTER 2022-05-23 04:28 | Inpatient (IN) | payer BC, MEDICAID ==
[~2022-05-23] VITALS: Ht 170.2 cm; Wt 94.9 kg
[2022-05-23] VITALS (10 sets, daily range): BP systolic 106–121; BP diastolic 61–83
[2022-05-23] MEDS ORDERED: ceFAZolin INJECTION 2,000 MG in NS (IVPB) 50 ML IV ONE (05:45)
[2022-05-23] MEDS ORDERED: METOCLOPRAMIDE INJ 10 MG/2 ML (REGLAN) IV ONE (05:45)
[2022-05-23] MEDS ORDERED: CITRIC ACID/SOB CIT (BICITRA) 30 ML UDC PO ONE (05:45)
[2022-05-23] MEDS ORDERED: LACTATED RINGERS 1,000 ML IV SCH (05:45)
[2022-05-23] MEDS ORDERED: FAMOTIDINE 20MG/2ML IV (PEPCID) IV ONE (05:45)
[2022-05-23] MEDS: LACTATED RINGERS 1,000 ML IV SCH ×2 (06:00→06:46)
[2022-05-23] MEDS ORDERED: NS (IVPB) 50 ML ONE (06:01)
[2022-05-23 06:05] LABS: BASOPHILS % (AUTO) 1 % (0-10); EOSINOPHILS # (AUTO) 0.1 10^3/uL (0.0-0.3); EOSINOPHILS % (AUTO) 1 % (0-10); HEMATOCRIT 34 % (35-52); HEMOGLOBIN 11.6 g/dL (11.5-16.0); LYMPHOCYTES # (AUTO) 1.6 10^3/uL (1.0-4.0); LYMPHOCYTES % (AUTO) 20 % (12-44); MEAN CORPUSCULAR HEMOGLOBIN 31 pg (25-34); MEAN CORPUSCULAR HGB CONC 34 g/dL (32-36); MEAN CORPUSCULAR VOLUME 92 fL (80-99); MEAN PLATELET VOLUME 11.9 fL (9.0-12.2); MONOCYTES # (AUTO) 0.9 10^3/uL (0.0-1.0); MONOCYTES % (AUTO) 11 % (0-12); NEUTROPHILS # (AUTO) 5.3 10^3/uL (1.8-7.8); NEUTROPHILS % (AUTO) 66 % (42-75); PLATELET COUNT 157 10^3/uL (130-400); WHITE BLOOD COUNT 8.1 10^3/uL (4.3-11.0)
[2022-05-23] MEDS ORDERED: ceFAZolin INJECTION 1,000 MG ONE (06:59)
[2022-05-23] MEDS ORDERED: fentaNYL INJ 100 MCG/2 ML AMP ONE (07:04)
[2022-05-23] MEDS ORDERED: OXYTOCIN PRE-MIX DRIP 500 ML IV ONE ×2 (07:05→08:04)
[2022-05-23] MEDS ORDERED: ceFAZolin INJECTION 2,000 MG ONE (07:09)
[2022-05-23] MEDS ORDERED: BUPIVACAINE 0.5% 30 ML (SENSORCAINE) VIAL ONE (07:12)
[2022-05-23] MEDS ORDERED: KETOROLAC 30 MG/ML VIAL ONE (07:12)
--- NOTE | 2022-05-23 07:17 | History & Physical-OB ---
OB - Chief Complaint & HPI Date/Time Date of Admission: Date of Admission: May 23, 2022 at 05:35 Date seen by a Provider: May 23, 2022 Time Seen by a Provider: 07:14 Chief Complaint/History OB-Reason for Admission/Chief: Section Hx : 2 Hx Para: 1 Expected Date of Delivery: Jun 05, 2022 Gestational Age in Weeks: 38 Gestational Age in Days: 1 Indication for : desires repeat Admission Nurse Assessment Rev: Yes History of Labs O pos Antibody neg RI RPR NR HIV NR HBsAg NR GC neg GBS neg Allergies and Home Medications Allergies Coded Allergies: No Known Drug Allergies (Unverified , 05/21/22) Patient Home Medication List Home Medication List Reviewed: Yes Vit W-Ca,Fe,FA(<1 mg) ( Vitamins) 1 Each Tablet, 1 EACH PO DAILY, (Reported) Entered as Reported by: HERMES HALL on 12/08/171924 Discontinued Medications Docusate Sodium (Docusate Sodium) 100 Mg Capsule, 100 MG PO BID PRN for CONSTIPATION-1ST LINE Discontinued Reason: No Longer Taking Prescribed by: EULALIA ALVARADO on 12/09/17328 Hydrocodone Bit/Acetaminophen (Lortab 5 Mg Tablet) 1 Tab Tab, 1-2 TAB PO Q4H PRN for PAIN-MODERATE Discontinued Reason: No Longer Taking Prescribed by: EULALIA ALVARADO on 12/09/17328 Hydrocodone/Acetaminophen (Hydrocodone/Acetaminophen 5 MG/325 MG TAB) 1 Each Tablet, 1 TAB PO Q4-6HR Discontinued Reason: No Longer Taking Prescribed by: JIMY KWOK on 08/10/192021 Ibuprofen (Ibu) 600 Mg Tablet, 600 MG PO Q6H Discontinued Reason: No Longer Taking Prescribed by: EULALIA ALVARADO on 12/09/17328 Sulfamethoxazole/Trimethoprim (Bactrim Ds Tablet) 1 Each Tablet, 1 EACH PO BID Discontinued Reason: No Longer Taking Prescribed by: JIMY KWOK on 08/10/192021 OB - History Hx of Present Care: Yes Ultrasounds: Normal mid trimester US Obstetrical Complications: Gestational Hypertension Medical Complications: None Patient Past Medical History n/a Social History/Family History 2nd Hand Smoke Exposure: No Immunizations First/Initial COVID19 Vaccine: 2020 Second COVID19 Vaccination: 2020 Tetanus Booster (TDap): Less than 5yrs OB - Admission Exam Physical Exam Vitals: Vital Signs 05/23/22 07:03 Temp 37.2 Pulse 86 Resp 18 Pulse Ox 97 O2 Delivery Room Air HEENT: NCAT Heart: Rhythm Normal Lungs: Clear Abdomen: Gravid Extremities: Normal Reflexes: Normal Membranes: Intact Heart Rate: 130's Accelerations: Accelerations Present Decelerations: No Decelerations Short Term Variability: Present Cloud Security Architect Variability: Average (6-25) Contractions on Admission: >10 Minutes Apart Intensity: Mild Labs Laboratory Tests Test 05/23/22 05:50 Range/Units White Blood Count 8.1 4.3-11.0 10^3/uL Red Blood Count 3.75 L 3.80-5.11 10^6/uL Hemoglobin 11.6 11.5-16.0 g/dL Hematocrit 34 L 35-52 % Mean Corpuscular Volume 92 80-99 fL Mean Corpuscular Hemoglobin 31 25-34 pg Mean Corpuscular Hemoglobin Concent 34 32-36 g/dL Red Cell Distribution Width 12.4 10.0-14.5 % Platelet Count 157 130-400 10^3/uL Mean Platelet Volume 11.9 9.0-12.2 fL Immature Granulocyte % (Auto) 2 % Neutrophils (%) (Auto) 66 42-75 % Lymphocytes (%) (Auto) 20 12-44 % Monocytes (%) (Auto) 11 0-12 % Eosinophils (%) (Auto) 1 0-10 % Basophils (%) (Auto) 1 0-10 % Neutrophils # (Auto) 5.3 1.8-7.8 10^3/uL Lymphocytes # (Auto) 1.6 1.0-4.0 10^3/uL Monocytes # (Auto) 0.9 0.0-1.0 10^3/uL Eosinophils # (Auto) 0.1 0.0-0.3 10^3/uL Basophils # (Auto) 0.0 0.0-0.1 10^3/uL Immature Granulocyte # (Auto) 0.2 H 0.0-0.1 10^3/uL OB - Assessment/Plan/Diagnosis Assessment Assessment: section Admission Dx 27 yo @ 38.1 Previous GHTN GBS neg Admission Status: Inpatient Order (span 2 midnights) Reason for Inpatient Admission: RCS at 38 weeks Plan Plan: Section EULALIA ALVARADO DO May 23, 2022 07:17
--- NOTE | 2022-05-23 07:20 | Discharge Inst-Women's Service ---
Discharge Inst-Women's Serv Depart Medication/Instructions New, Converted or Re-Newed RX: Transmitted to Pharmacy Final Diagnosis POD 2 RLTCS Problems Reviewed?: Yes Consults/Follow Up Additional Follow Up: Yes Orders/Referrals Dr. Hughes in 7-10 days and in 6 weeks Activity Activity: Activity as Tolerated Driving Instructions: No Driving for 1 Week NO SMOKING: NO SMOKING Nothing Inside Vagina: No Douching, No [place], No Tampons Diet Discharge Diet: No Restrictions Symptoms to Report to : Bleeding Excessive, Pain Increased, Fever Over 101 Degrees F, Vaginal Bleeding Increase, Questions/Concerns For Any Problems or Questions: Contact Your Physician Skin/Wound Care Infection Signs and Symptoms: Increased Redness, Foul Odor of Wound, Increased Drainage, Skin Itchy or Has a Rash, Increased Swelling, Temperature Above 101 F Operative Area Clean and Dry: Keep Incision Clean/Dry Stitches/[place]/Dermabond: Dermabond, Care of Stitches Bathing Instructions: EULALIA Townsend DO May 23, 2022 07:20
[2022-05-23] MEDS ORDERED: DOCU100C37 PO (07:22)
[2022-05-23] MEDS ORDERED: ACHD5005 PO (07:22)
[2022-05-23] MEDS ORDERED: IBUP-844 PO (07:22)
[2022-05-23] MEDS ORDERED: NALOXONE 0.4 MG/ML 1 ML (NARCAN) VIAL IV PRN (07:30)
[2022-05-23] MEDS ORDERED: ONDANSETRON 4 MG/2 ML (SDV) Z0FRAN IVP PRN (07:30)
[2022-05-23] MEDS ORDERED: TETANUS,DIPTH,PERTUSS P/F (BOOSTRIX) 0.5 ML VIAL IM SCH (07:30)
[2022-05-23] MEDS ORDERED: MEASLES,MUMPS,RUBELLA 1 EA INJ SC SCH (07:30)
[2022-05-23] MEDS ORDERED: ONDANSETRON 4 MG/2 ML (SDV) Z0FRAN ONE (08:04)
[2022-05-23] MEDS ORDERED: PHENYLEPHRINE 100 MCG/ML 10 ML (ANESTHESIA) SYR ONE (08:16)
[2022-05-23] MEDS: OXYTOCIN PRE-MIX DRIP 500 ML IV SCH ×2 (09:02→12:41)
[2022-05-23] MEDS: KETOROLAC 30 MG/ML VIAL IV SCH ×2 (13:29→19:33)
[2022-05-23] MEDS: HYDROcodone/APAP 5 MG/325 MG (LORTAB) TAB PO PRN ×2 (13:30→19:33)
[2022-05-23] MEDS ORDERED: CATHETER FLUSH 10 ML SYR IV SCH (14:00)
--- NOTE | 2022-05-23 17:48 | OPERATIVE REPORT ---
PREOPERATIVE DIAGNOSES: 1. A 27-year-old G2, P1 at 38 weeks and 1 day gestation. 2. Gestational hypertension. POSTOPERATIVE DIAGNOSES: 1. A 27-year-old G2, P1 at 38 weeks and 1 day gestation. 2. Gestational hypertension. PROCEDURE: Repeat low transverse section. SURGEON: Dr. Norberto Alvarado. SYSTEMS ADMIN: Yamileth Stewart DNP, was necessary for manipulation and retraction throughout the procedure. ANESTHESIA: Spinal. ESTIMATED BLOOD LOSS: 400 mL. URINE OUTPUT: 200 mL clear at the end of procedure. FLUIDS: 1000 mL lactated Ringer's solution. FINDINGS: Live male , weight was pending, Apgars of 8 and 8. Grossly normal appearing uterus, bilateral fallopian tubes and ovaries. SPECIMENS SENT: None. INDICATIONS FOR PROCEDURE: This 27-year-old female is a patient who had sought care in my office was uncomplicated with the exception of elevation in blood pressure towards the end of the . This was without proteinuria. She had a previous and would like to proceed with a repeat . We discussed delivery at 38 weeks. Risks of the procedure were discussed with the patient in detail. After all of her questions were answered, consent was obtained in the preoperative area and the patient was taken to the operating room. OPERATIVE REPORT IN DETAIL: Once in the operating room, spinal analgesia was found to be adequate, was placed in supine position a leftward tilt, prepped and draped in normal sterile fashion. A timeout was performed. Anesthesia was tested. I then make a Pfannenstiel skin incision through preexisting scar using a knife and carried down to the underlying fascia using Bovie cautery. The fascial incision was extended laterally using Bovie cautery. Superior aspect of fascial incision was then grasped with Deysi clamps, tented upward and dissected off the underlying rectus muscles. The inferior aspect of the fascial incision was then grasped with Deysi clamps, tented up and dissected off the underlying rectus muscles. Rectus muscles were dissected down to midline using sharp dissection, which exposes the peritoneum, which I entered bluntly and extended using blunt traction. Giovany ring retractor was placed in the peritoneal incision which offers excellent lateral sidewall retraction. I identified the lower uterine segment, was found to be thinned out. I make a low transverse incision to the vesicouterine peritoneum and bluntly dissected off the lower uterine segment, creating a bladder flap. I then proceeded with myotomy until membranes were visualized, at which point, I extended the uterine incision laterally and superiorly using bandage scissors. Amniotomy was performed using Allis clamp. Clear fluid was noted. The was found in vertex presentation with the infant's head was elevated up to the incision. It is delivered through the incision. The nares and oropharynx were bulb suctioned. Anterior and posterior shoulders were delivered. The infant was brought to the operative field. Cord was doubly clamped and cut and was handed off to waiting nurses in attendance. Cord blood was collected. Three-vessel cord intact placenta was delivered spontaneously thereafter. IV Pitocin was initiated to facilitate uterine contraction. Uterine fundus confirmed by bimanual massage. The uterus was exteriorized and cleared of all endometrial clots and debris. I then proceeded with closing the uterine incision using 0 Vicryl suture in a running locked fashion. Second layer of imbricating 0 Monocryl was placed. Excellent hemostasis was noted after doing this. I then placed the uterus back in the pelvis. I copiously irrigated the pelvis using normal saline. Once again, there was no active bleeding noted from any of my dissection planes. I placed Interceed antiadhesive over my low transverse incision. I removed the Giovany ring retractor and proceeded to close the peritoneum using 3-0 Vicryl suture in a running fashion. The rectus muscle was reapproximated using 3-0 Vicryl suture in interrupted fashion. The fascia was reapproximated using 0 Vicryl suture in a running fashion. The subcutaneous tissue was reapproximated using 3-0 plain in interrupted subcutaneous stitch and the skin was reapproximated using 4-0 Monocryl running subcuticular. Dermabond was applied to the incision and sterile dressing with adhesive white tape. The patient tolerated the procedure well and was taken to recovery area in stable condition. Lap and sponge counts were correct at the end of the procedure. Instrument counts were correct as well. Two grams of Ancef are given preoperatively for infection prophylaxis. Job ID: [id number] DocumentID: [id number] Dictated Date: 05/23/2022 12:18:38 Wrong Address Clerk Date: 05/23/2022 17:45:00 Dictated By: NORBERTO ALVARADO DO
[2022-05-23] MEDS: DOCUSATE SODIUM 100 MG (COLACE) CAP PO SCH (19:33)
[2022-05-24] MEDS: KETOROLAC 30 MG/ML VIAL IV SCH (01:34)
[2022-05-24] MEDS: HYDROcodone/APAP 5 MG/325 MG (LORTAB) TAB PO PRN ×4 (01:35→19:43)
[2022-05-24 03:43] VITALS: BP 107/55
[2022-05-24 06:01] LABS: BASOPHILS % (AUTO) 0 % (0-10); EOSINOPHILS # (AUTO) 0.1 10^3/uL (0.0-0.3); EOSINOPHILS % (AUTO) 1 % (0-10); HEMATOCRIT 30 % (35-52); HEMOGLOBIN 10.2 g/dL (11.5-16.0); LYMPHOCYTES # (AUTO) 1.8 10^3/uL (1.0-4.0); LYMPHOCYTES % (AUTO) 15 % (12-44); MEAN CORPUSCULAR HEMOGLOBIN 31 pg (25-34); MEAN CORPUSCULAR HGB CONC 34 g/dL (32-36); MEAN CORPUSCULAR VOLUME 92 fL (80-99); MEAN PLATELET VOLUME 12.2 fL (9.0-12.2); MONOCYTES # (AUTO) 0.9 10^3/uL (0.0-1.0); MONOCYTES % (AUTO) 7 % (0-12); NEUTROPHILS # (AUTO) 9.4 10^3/uL (1.8-7.8); NEUTROPHILS % (AUTO) 76 % (42-75); PLATELET COUNT 153 10^3/uL (130-400); WHITE BLOOD COUNT 12.3 10^3/uL (4.3-11.0)
[2022-05-24] MEDS ORDERED: SIMETHICONE 80 MG (MYLICON) CHEW ONE (06:20)
[2022-05-24] MEDS ORDERED: SIMETHICONE 80 MG (MYLICON) CHEW PO ONE (06:30)
[2022-05-24] MEDS: DOCUSATE SODIUM 100 MG (COLACE) CAP PO SCH ×2 (08:06→19:43)
[2022-05-24] MEDS: IBUPROFEN 600 MG (MOTRIN) TAB PO SCH ×3 (08:07→19:43)
[2022-05-24 09:00] VITALS: BP 118/61
--- NOTE | 2022-05-24 11:09 | Postpartum Progress Note ---
Note Note Day # 1 Subjective: Patient is without complaints. Ambulating, voiding. Tolerating a regular diet without nausea or vomiting. Normal lochia. Pain is well controlled with oral pain medications. Physical Exam: General - Alert and oriented, no apparent distress Abdomen - Soft, appropriately tender to palpation, non-distended, fundus firm at umbilicus; incision c/d/i Extremities - no edema, negative Ophelia's bilaterally Assessment: Post- day # 1, status post RLTCS Recovering well, hemodynamically stable Acute blood loss anemia Plan: Routine care. Encourage breast feeding. Encourage ambulation. Ferrous sulfate supplementation. Plan for discharge tomorrow Vitals - Labs Vital Signs - I&O Vital Signs Date Time Temp Pulse Resp B/P (MAP) Pulse Ox O2 Delivery O2 Flow Rate FiO2 05/24/22 09:00 36.7 77 18 118/61 (80) 97 Room Air 05/24/22 03:43 37.0 81 16 107/55 (72) 98 Room Air 05/23/22 23:37 37.2 70 18 121/61 (81) 98 Room Air 05/23/22 19:30 37.4 72 18 114/72 (86) 97 Room Air 05/23/22 16:00 37.0 68 20 117/65 (82) Room Air I & O 05/24/22 07:00 Intake Total 50 ml Output Total 2700 ml Balance -2650 ml Labs Laboratory Tests 05/24/22 05:40: White Blood Count 12.3H, Red Blood Count 3.30L, Hemoglobin 10.2L, Hematocrit 30L , Mean Corpuscular Volume 92, Mean Corpuscular Hemoglobin 31, Mean Corpuscular Hemoglobin Concent 34, Red Cell Distribution Width 12.6, Platelet Count 153, Mean Platelet Volume 12.2, Immature Granulocyte % (Auto) 1, Neutrophils (%) (Auto) 76H, Lymphocytes (%) (Auto) 15, Monocytes (%) (Auto) 7, Eosinophils (%) (Auto) 1, Basophils (%) (Auto) 0, Neutrophils # (Auto) 9.4H, Lymphocytes # (Auto) 1.8, Monocytes # (Auto) 0.9, Eosinophils # (Auto) 0.1, Basophils # (Auto) 0.0, Immature Granulocyte # (Auto) 0.1 INÉS TSE BUTCHER SUPERVISOR May 24, 2022 11:09
[2022-05-24 13:39] VITALS: BP 113/61
[2022-05-24] MEDS ORDERED: SIMETHICONE 80 MG (MYLICON) CHEW PO SCH (14:00)
[2022-05-24 19:47] VITALS: BP 129/69
[2022-05-25 01:31] VITALS: BP 120/63
[2022-05-25] MEDS: IBUPROFEN 600 MG (MOTRIN) TAB PO SCH ×2 (01:32→07:40)
[2022-05-25 07:30] VITALS: BP 110/64
[2022-05-25] MEDS: DOCUSATE SODIUM 100 MG (COLACE) CAP PO SCH (07:40)
--- NOTE | 2022-05-25 08:21 | Postpartum Progress Note ---
Note Note Day # [2 s/p ] Subjective: Patient is without complaints. Ambulating, voiding. Tolerating a regular diet without nausea or vomiting. Normal lochia. Pain is well controlled with oral pain medications. [] feeding. [Denies heavy bleeding] Objective: [VSS/AF, HCT stable (see graphic and labs] Physical Exam: General - Alert and oriented, no apparent distress Abdomen - Soft, appropriately tender to palpation, non-distended, fundus firm at 4 cm below umbilicus. Normal lochia, incision clean and dry and without erythema, edges well approximated. Extremities - no edema, negative Ophelia's bilaterally Assessment: [] post-op day # [2], status post [] Recovering well, hemodynamically stable Plan: Routine care. Encourage breast feeding. Encourage ambulation.. Plan for discharge: Patient being discharged home today. Discharge meds and follow up and instructions done by Dr. Hughes. Follow up as instructed. Patient and FOB without questions or concerns. RN in room during patient encounter. [] Vitals - Labs Vital Signs - I&O Vital Signs Date Time Temp Pulse Resp B/P (MAP) Pulse Ox O2 Delivery O2 Flow Rate FiO2 05/25/22 01:31 36.7 72 18 120/63 (82) 96 Room Air 05/24/22 19:47 36.7 68 20 129/69 (89) 97 Room Air 05/24/22 13:39 36.8 74 18 113/61 (78) 05/24/22 09:00 36.7 77 18 118/61 (80) 97 Room Air REBECCA MARK DO May 25, 2022 08:21
[2022-05-25 09:00] VITALS: BP 110/64
== END 2022-05-25 13:50 | disposition home or self-care (01) | DRG 787 ==
LOC: LDRP 05:35
PROVIDERS: ADMIT Obstetrics & Gynecology; ATTEND Obstetrics & Gynecology
PROC: 10D00Z1 Extraction of Products of Conception, Low, Open Approach (ICD-10-PCS; principal; 2022-05-23 07:17)
DX: O34.211 Maternal care for low transverse scar from previous cesarean delivery (principal); D62 Acute posthemorrhagic anemia; Z3A.38 38 weeks gestation of pregnancy; Z37.0 Single live birth; O13.4 Gestational [pregnancy-induced] hypertension without significant proteinuria, complicating childbirth; O90.81 Anemia of the puerperium
CPT/HCPCS: 36415; 85025; 86850; 86900; 86901; 94664

== ENCOUNTER → 2023-03-13 | Outpatient (CLI) | payer BC, MEDICAID ==
--- NOTE | 2023-03-13 17:31 | Diagnostic Imaging Report ---
INDICATION: Anatomic survey of fetus, screening with ultrasound. TECHNIQUE: Multiple real-time grayscale images were obtained over the gravid uterus. COMPARISON: None. FINDINGS: There is aj intrauterine gestation in cephalic presentation. Amniotic fluid index is 11 cm with posterior placenta. There is no evidence of previa. Heart rate is 147 BPM and there is a cervical length of 4.2 cm. No anomalies identified. biometry indicates gestational age of approximately 19 weeks and 3 days. No maternal adnexal region abnormality is seen. IMPRESSION: Unremarkable intrauterine gestation with estimated age of 19 weeks and 2 days. Sonographic EDC is 08/04/2023. Biometrical measurements are as follows: Biparietal 4.28 cm, age 19 weeks 0 days. Head circumference 16.58 cm, age 19 weeks 2 days. Abdominal circumference 13.48 cm, age 19 weeks 0 days. Femur length 3.21 cm, age 20 weeks 0 days. Sonographic estimate age: 19 weeks 3 days. Sonographic estimated date of delivery: 08/04/2023. Estimated Weight: 291 gm (+/- 43 gm). LMP percentile: 17%. heart rate: 147 beats per minute. number: 1 of 1. Dictated by: Dictated on workstation # [id number]
== END ==
LOC: RAD 14:52
PROVIDERS: ATTEND Nurse Practitioner Women's Health
DX: Z34.02 Encounter for supervision of normal first pregnancy, second trimester (principal); Z3A.19 19 weeks gestation of pregnancy
CPT/HCPCS: 76805